=== PATIENT | female | born 1965 ===

== ENCOUNTER 2017-05-01 11:18 | Emergency (ER) | payer MEDICAID ==
[2017-05-01 11:22] VITALS: BMI 40.6
[2017-05-01 11:23] VITALS: BP 145/90; PULSE 94; TEMP 97.7; O2SAT 98
[2017-05-01] MEDS ORDERED: Albuterol-Ipratrop 3 mg / 0.5 (3 ml) UD INH STA (11:46)
[2017-05-01] MEDS ORDERED: Albuterol-Ipratrop 3 mg / 0.5 (3 ml) UD IH STA ×2 (11:46)
--- NOTE | 2017-05-01 11:52 | ED PDOC ---
HPI: SOB/CHF/COPD Time Seen by Provider: 05/01/17 11:28 Chief Complaint (Nursing): Shortness Of Breath Chief Complaint (Provider): wheezes History Per: Patient History/Exam Limitations: no limitations Onset/Duration Of Symptoms: Days (feb 16, 2017) Current Symptoms Are (Timing): Still Present Additional Complaint(s): Pt. with cough. Ongoing since pt. got a new cat. Saw her pcp and was given allergy meds. It helped and then she started gettin wheezes and given inhaler which helps but she is using it more frequently. Denies any weakness, headaches , dizziness, nausea, vomit, diarrhea. Has pain to the chest on coughing only as she has been coughing so much. No abd pain. No leg pain. No long distance travel. Past Medical History Reviewed: Nursing Documentation, Vital Signs Vital Signs: Last Vital Signs Temp 97.7 F 05/01/17 11:22 Pulse 94 H 05/01/17 11:22 Resp 22 05/01/17 11:22 BP 145/90 05/01/17 11:22 Pulse Ox 98 05/01/17 11:55 - Medical History PMH: Anxiety, Depression, Hypercholesterolemia Other PMH: prediabetic - Surgical History Surgical History: No Surg Hx - Family History Family History: States: Unknown Family Hx - Living Arrangements Living Arrangements: With Family - Social History Alcohol: None Drugs: Denies - Immunization History Hx Tetanus Toxoid Vaccination: Yes Hx Influenza Vaccination: Yes Hx Pneumococcal Vaccination: Yes - Home Medications Home Medications: Ambulatory Orders Medication Instructions Recorded Albuterol Sulfate [Proair Hfa] 0.09 mg IH Q6H PRN #2 inh 05/01/17 predniSONE [predniSONE Tab] 20 mg PO BID 5 Days tab 05/01/17 - Allergies Allergies/Adverse Reactions: Allergies Allergy/AdvReac Type Severity Reaction Status Date / Time acetaminophen Allergy Verified 05/01/17 11:45 hydrocodone [From Vicodin] Allergy Verified 05/01/17 11:45 oxycodone [From Percocet] Allergy Verified 05/01/17 11:45 tramadol Allergy Verified 05/01/17 11:45 Review of Systems ROS Statement: Except As Marked, All Systems Reviewed And Found Negative Cardiovascular: Positive for: Chest Pain Respiratory: Positive for: Cough, Shortness of Breath, Wheezing Physical Exam - Reviewed Nursing Documentation Reviewed: Yes Vital Signs Reviewed: Yes - Physical Exam Appears: Positive for: Non-toxic, No Acute Distress Head Exam: Positive for: ATRAUMATIC, NORMAL INSPECTION, NORMOCEPHALIC Skin: Positive for: Normal Color, Warm, DRY Eye Exam: Positive for: EOMI, Normal appearance, PERRL ENT: Positive for: Normal ENT Inspection Neck: Positive for: Normal, Painless ROM, Supple Cardiovascular/Chest: Positive for: Regular Rate, Rhythm. Negative for: Edema Respiratory: Positive for: Wheezing (mild end expiration). Negative for: Accessory Muscle Use Gastrointestinal/Abdominal: Positive for: Normal Exam, Bowel Sounds, Soft. Negative for: Tenderness Back: Positive for: Normal Inspection. Negative for: L CVA Tenderness, R CVA Tenderness Extremity: Positive for: Normal ROM. Negative for: Tenderness, Pedal Edema Neurologic/Psych: Positive for: Alert, Oriented. Negative for: Motor/Sensory Deficits - ECG ECG: Positive for: Interpreted By Me, Viewed By Me ECG Rhythm: Positive for: Normal QRS, Normal ST Segment, Sinus Rhythm O2 Sat by Pulse Oximetry: 98 Pulse Ox Interpretation: Normal - Progress ED Course And Treament: 1258: Pt. with no more dyspnea. Fu with pcp. Stop exposure to cat. AAOx3. No pain. Disposition - Clinical Impression Clinical Impression: Wheeze - Patient ED Disposition Is Patient to be Admitted: No Counseled Patient/Family Regarding: Diagnosis, Need For Followup, Rx Given - Disposition Referrals: Regla Grimm MD [Staff Provider] - 05/02/17 Disposition: Routine/Home Disposition Time: 13:00 Condition: STABLE Additional Instructions: Return if not better in 3 days. Stop exposure to cats. Prescriptions: Albuterol Sulfate [Proair Hfa] 0.09 mg IH Q6H PRN #2 inh PRN Reason: Wheezing predniSONE [predniSONE Tab] 20 mg PO BID 5 Days tab Instructions: Wheezing (ED) Forms: [employer] (Arabic), [employer] ED School/Work Excuse
[2017-05-01] MEDS ORDERED: Albuterol-Ipratrop 3 mg / 0.5 (3 ml) UD ONE (12:01)
[2017-05-01 14:22] VITALS: RESP 16
--- NOTE | 2017-05-02 12:26 | CARD ---
APPROVED REPORT EKG Measurement Heart [id number] HI [id number] <Conclusion> Normal sinus rhythm Minimal voltage criteria for LVH, may be normal variant Borderline ECG
== END 2017-05-01 14:00 | disposition home or self-care (01) ==
LOC: H.ER 11:18
DX: R06.2 Wheezing (principal); E78.00 Pure hypercholesterolemia, unspecified; F32.9 Major depressive disorder, single episode, unspecified; F41.9 Anxiety disorder, unspecified; J44.9 Chronic obstructive pulmonary disease, unspecified; Z88.5 Allergy status to narcotic agent